=== PATIENT | male | born 2000 | race Caucasian/White ===

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

== ENCOUNTER 2024-06-02 04:47 | Emergency (ER) | payer SELFPAY ==
[~2024-06-02] VITALS: Ht 185.4 cm; Wt 81.2 kg
[2024-06-02] MEDS ORDERED: HYDROCODONE/APAP 5/325MG TABLET ONE ×2 (04:56→06:44)
[2024-06-02] MEDS: HYDROCODONE/APAP 5/325MG TABLET PO ONE ×2 (04:58→06:46)
[2024-06-02] MEDS ORDERED: LIDOCAINE 1%-EPI 1:100,000 20 ML VIAL ONE (05:22)
[2024-06-02] MEDS ORDERED: HYDR-3976 GT (06:44)
[2024-06-02 07:06] VITALS: BP 132/86; TEMP 98; O2SAT 99
== END 2024-06-02 07:06 | disposition home or self-care (01) ==
LOC: ER 04:50
DX: S01.01XA Laceration without foreign body of scalp, initial encounter (principal); S01.21XA Laceration without foreign body of nose, initial encounter; S01.81XA Laceration without foreign body of other part of head, initial encounter; Y04.0XXA Assault by unarmed brawl or fight, initial encounter; Y93.89 Activity, other specified; Y92.89 Other specified places as the place of occurrence of the external cause; Y99.8 Other external cause status
CPT/HCPCS: 12004; 12014; 70450; 70486; 99291; J3490